=== PATIENT | female | born 1965 | race African-American/Black ===

== ENCOUNTER 2019-10-27 10:04 | Emergency (ER) | payer BC ==
[~2019-10-27] VITALS: Ht 167.6 cm; Wt 94.2 kg
--- NOTE | 2019-10-27 10:30 | PHYS DOC ---
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 Patient denies any fever and is not aware of any COVID contacts but did get tested a couple weeks ago. Patient denies any GI symptoms such as nausea vomiting diarrhea. Symptoms are worse with exertion. Patient has some mild shortness of breath and some back pain as well. Review of Systems: Review of Systems: Constitutional: Denies fever or chills. [] Eyes: Denies change in visual acuity. [] HENT: Complains of nasal congestion and sore throat Respiratory: Complains of cough and mild shortness of breath Cardiovascular: Denies chest pain or edema. [] GI: Denies abdominal pain, nausea, vomiting, bloody stools or diarrhea. [] : Denies dysuria. [] Musculoskeletal: Complains of back pain but no joint pain Integument: Denies rash. [] Neurologic: Denies headache, focal weakness or sensory changes. [] Endocrine: Denies polyuria or polydipsia. [] Lymphatic: Denies swollen glands. [] Psychiatric: Denies depression or anxiety. [] Heart Score: Risk Factors: Risk Factors: DM, Current or recent (<one month) smoker, HTN, HLP, family history of CAD, obesity. Risk Scores: Score 0 - 3: 2.5% MACE over next 6 weeks - Discharge Home Score 4 - 6: 20.3% MACE over next 6 weeks - Admit for Clinical Observation Score 7 - 10: 72.7% MACE over next 6 weeks - Early Invasive Strategies Physical Exam: PE: Constitutional: Well developed, well nourished, no acute distress, non-toxic appearance. [] HENT: Normocephalic, atraumatic, bilateral external ears normal, mild oropharyngeal erythema without tonsillar exudate or abscess nose normal. [] Eyes: PERRLA, EOMI, conjunctiva normal, no discharge. [] Neck: Normal range of motion, no tenderness, supple, no stridor. [] Cardiovascular:Heart rate regular rhythm, peripheral pulses intact, cap refill brisk Lungs & Thorax: Expiratory wheeze no respiratory distress Abdomen: Abdomen soft nontender without guarding or rebound, no pulsatile masses Skin: Warm, dry, no erythema, no rash. [] Back: No tenderness, no CVA tenderness. [] Extremities: No tenderness, no cyanosis, no clubbing, ROM intact, no edema. [] Neurologic: Alert and oriented X 3, normal motor function, normal sensory function, no focal deficits noted. [] Psychologic: Affect normal, judgement normal, mood normal. [] Current Patient Data: Labs: Laboratory Tests Test 10/27/19 10:19 10/27/19 10:34 Group A Streptococcus Rapid Negative Urine Collection Type Void Urine Color Yellow Urine Clarity Clear Urine pH 5.5 Urine Specific Sikes 1.025 Urine Protein Negative mg/dL Urine Glucose (UA) Negative mg/dL Urine Ketones (Stick) Negative mg/dL Urine Blood Negative Urine Nitrite Negative Urine Bilirubin Negative Urine Urobilinogen Dipstick 1.0 mg/dL Urine Leukocyte Esterase Negative Urine RBC 0 /HPF Urine WBC 1-4 /HPF Urine Squamous Epithelial Cells Mod /LPF Urine Bacteria 0 /HPF Urine Mucus Marked /LPF Current Medications Medications (Trade) Dose Ordered Sig/Amado Route PRN Reason Start Time Stop Time Status Last Admin Dose Admin Prednisone (Prednisone) 60 mg 1X ONCE PO 10/27/19 10:45 10/27/19 10:47 DC 10/27/19 11:09 Albuterol Sulfate (Ventolin Neb Soln) 2.5 mg 1X ONCE NEB 10/27/19 10:45 10/27/19 10:47 DC 10/27/19 11:12 Vital Signs: Vital Signs Date Time Temp Pulse Resp B/P (MAP) Pulse Ox O2 Delivery O2 Flow Rate FiO2 10/27/19 11:13 98 Room Air 10/27/19 10:22 98.2 85 20 110/65 (80) 98 Room Air 98.2 EKG: EKG: [] Radiology/Procedures: Radiology/Procedures: [][facility] [address] [place] [address] IMAGING REPORT Signed PATIENT: YOBANI LOPEZ ACCOUNT: [id number] : 1965 LOCATION: ER AGE: 54 SEX: F EXAM STATUS: REG ER ORD. PHYSICIAN: DELMI MARQUEZ MD REASON: fever, cough PROCEDURE: PORTABLE CHEST 1V Single view of the chest. 10/27/2019 10:56 AM Indication: Reason: fever, cough / Spl. Instructions: / History: Comparison: None Findings: There is linear opacification extending from the left hilum and left upper chest. There are linear opacities are noted in the left lateral lung. Appearance favors multifocal discoid atelectasis or scarring. No comparison is available for review. No other definitive focal infiltrate is seen. No pneumothorax or pleural effusion is seen. Heart size is within normal limits. No acute bony changes are identified. IMPRESSION: Linear opacities extending from left hilum and left upper chest, and from left midlung most likely reflecting discoid atelectasis or scarring. Consider radiographic follow-up in to ensure resolution and/or stability. Electronically signed by: Al Gleason MD (10/27/2019 11:28 AM) [id number] DICTATED and SIGNED BY: AL GLEASON MD DATE: 10/27/19 1128 Course & Med Decision Making: Course & Med Decision Making COVID-19 CRITERIA: The patient was evaluated during the global COVID-19 pandemic, and that diagnosis was suspected/considered upon their initial presentation. Their evaluation, treatment and testing was consistent with current guidelines for patients who present with complaints or symptoms that may be related to COVID-19. Pertinent Labs and Imaging studies reviewed. (See chart for details) [] 54-year-old female presents with upper respiratory symptoms. Patient has some wheezing on exam. Patient given nebulizer and steroids. Patient is possible atelectasis versus infiltrate on x-ray. Patient be treated with Zithromax. Strep test is negative cover testing is pending. Patient told to isolate till COVID test comes back. Dragon Disclaimer: Dragon Disclaimer: This electronic medical record was generated, in whole or in part, using a voice recognition dictation system. Departure Departure Impression: Primary Impression: Upper respiratory infection Additional Impressions: Bronchospasm Pneumonia Suspected COVID-19 virus infection Disposition: 01 HOME, SELF-CARE Referrals: SHILA AWAD, RN, PRODUCTION CONTROL EXPEDITER (PCP) 2-3 days Patient Instructions: Upper Respiratory Infection, Adult Additional Instructions: You have been tested for or diagnosed with COVID-19. It is an infection caused by a new type of coronavirus. COVID-19 will cause cold-like or mild flu symptoms in most. It can cause more severe symptoms like problems breathing in some. There is no treatment for COVID-19. The body will clear the infection over time. Self-care will help to ease discomfort. Steps to Take: Self-Care Rest as needed. Healthy habits may help you feel better. Steps include: Choose healthy foods including fruits and vegetables. Drink water throughout the day. Get plenty of sleep each night. If you smoke, try to quit. It may ease breathing. Avoid alcohol. Keep Others Healthy The virus can spread to others. Droplets are released every time you sneeze or cough. The droplets can get into the mouth, nose, or eyes of people near you and lead to infection. To lower the chances of spreading COVID-19 to others: Stay at home until your doctor has said it is safe to leave. If you tested positive this will mean staying isolated until both of the following are true: At least 7 days have passed since the start of illness. You are free of fever for at least 72 hours without the use of medicine. During this time: - Avoid public areas, events, or transportation. Do not return to work or school until your doctor has said it is safe to do so. - Call ahead if you need to go to a medical center. Let them know you may have COVID-19. It will help them guide you where to go. They may also ask you to wear a facemask when you come to the office. - If you call for emergency medical services, let them know you may have COVID- 19. While at home: - Try to avoid close contact with others. Stay about 6 feet away. - If possible, spend most of your time in a separate room from others. - Use a face mask if you will be in close contact with others such as sharing a room or vehicle. - Have someone wipe down common surfaces in the home. Use household printing press operator apprentice every day on areas like doorknobs, counters, or sinks. - Cough or sneeze into a tissue. Throw the tissue away right after use. If a tissue is not available, cough or sneeze into your elbow. - Wash your hands often. Wash them after sneezing or coughing. Use soap and water and wash for at least 20 seconds. Alcohol based hand pigs feet cleaner can be used if soap and water is not available. - Do not prepare food for others. Avoid sharing personal items like forks, spoons, or toothbrushes. - Avoid close contact with pets while you are sick. There is no evidence of the virus passing to pets. This is a safety step until more is known about this virus. Isolation can be frustrating. Social interaction can help. Keep in touch with friends and family through phone and tech options. You can still interact with others in your home, just keep a safe distance of about 6 feet. Follow-up: Your doctors office will check in with you to see if there are any changes in your health. You may be asked to keep track of symptoms to share with them. They will also let you know when you are clear to be in public again. Problems to Look Out For: Contact your doctor if your recovery is not going as you expect. Get emergency care if you have problems such as: - Trouble breathing - Nonstop chest pain or pressure - Changes in awareness, confusion, or problems waking - Lips or face have bluish color - Worsening of symptoms If you think you have an emergency, call for emergency medical services right away. As taken from [facility] EMERGENCY DEPARTMENT GENERAL DISCHARGE INSTRUCTIONS THANK YOU for coming to [facility] Emergency Department (ED) today and trusting us with your care. We trust that you had a positive experience in our Emergency Department. If you wish to speak to the department Management you can contact the department helper at . YOUR FOLLOW UP INSTRUCTIONS ARE FOLLOWS: Do you have a private doctor? If you do not have a private doctor, please ask for a resource list of physicians or clinics that may be able to assist you with follow up care. The Emergency Physician has interpreted your x-rays. The X-ray specialist will also review them. If there is a change in the findings you will be notified in 48 hours when at all possible. A lab test or lab culture may have been done, your results will be reviewed and you will be notified if you need a change in treatment. ADDITIONAL INSTRUCTIONS AND INFORMATION Your care today has been supervised by a physician who is specially trained in emergency care. Many problems require more than one evaluation for a complete diagnosis and treatment. We recommend that you schedule your follow up appointment as recommended to ens ure complete treatment of your illness or injury. If you are unable to obtain follow up care and continue to have a problem, or if your condition worsens we recommend that you return to the ED. We are not able to safely determine your condition over the phone nor are we able to give sound medical advice over the phone. For these safety reasons, if you call for medical advice we will ask you to come to the ED for further evaluation If you have any questions regarding these discharge instructions please call the ED at . SAFETY INFORMATION In the interest of safety, wellness, and injury prevention; we encourage you to wear your seatbelt, if you smoke; quit smoking, and we encourage your family to use protective helmet for bicycling and other sporting events that present an increased risk for head injury. IF YOUR SYMPTOMS WORSEN OR NEW SYMPTOMS DEVELOP, OR YOU HAVE CONCERNS ABOUT YOUR CONDITION; OR IF YOUR CONDITION WORSENS WHILE YOU ARE WAITING FOR YOUR FOLLOW UP APPOINTMENT; EITHER CONTACT YOUR PRIMARY CARE DOCTOR, THE PHYSICIAN WHOSE NAME AND NUMBER YOU WERE GIVEN, OR RETURN TO THE ED IMMEDIATELY. Scripts Albuterol Sulfate (PROAIR HFA INHALER) 8.5 Gm Hfa.aer.ad 2 PUFF IH PRN Q4-6HRS PRN for wheezing, #1 INHALER 0 Refills Prov: DELMI MARQUEZ MD 10/27/19 Prednisone (PREDNISONE) 20 Mg Tablet 3 TAB PO DAILY for 5 Days, #15 TAB Prov: DELMI MARQUEZ MD 10/27/19 Azithromycin (ZITHROMAX) 250 Mg Tablet 1 PKG PO UD, #6 TAB Prov: DELMI MARQUEZ MD 10/27/19 Justicifation of Admission Dx: Justifications for Admission: Justification of Admission Dx: N/A DELMI MARQUEZ MD Oct 27, 2019 10:30
[2019-10-27] MEDS ORDERED: predniSONE 20 MG TABLET PO ONE (10:45)
[2019-10-27] MEDS ORDERED: ALBUTEROL SULFATE 2.5 MG/3 ML NEBU. NEB ONE (10:45)
[2019-10-27 11:19] LABS: BILIRUBIN,URINE NEGATIVE (NEG); CLARITY,URINE CLEAR; COLOR,URINE YELLOW; NITRITE,URINE NEGATIVE (NEG); PH,URINE 5.5 (<5.0-8.0); PROTEIN,URINE NEGATIVE (NEG-TRACE)
--- NOTE | 2019-10-27 11:31 | RAD ---
Single view of the chest. 10/27/2019 10:56 AM Indication: Reason: fever, cough / Spl. Instructions: / History: Comparison: None Findings: There is linear opacification extending from the left hilum and left upper chest. There are linear opacities are noted in the left lateral lung. Appearance favors multifocal discoid atelectasis or scarring. No comparison is available for review. No other definitive focal infiltrate is seen. No pneumothorax or pleural effusion is seen. Heart size is within normal limits. No acute bony changes are identified. IMPRESSION: Linear opacities extending from left hilum and left upper chest, and from left midlung most likely reflecting discoid atelectasis or scarring. Consider radiographic follow-up in to ensure resolution and/or stability. Electronically signed by: Al Gomez MD (10/27/2019 11:28 AM) [id number]
[2019-10-27 11:37] LABS: SQUAMOUS EPITHELIAL CELL,UR MOD /LPF
[2019-10-27 11:38] LABS: BACTERIA,URINE 0 /HPF (0-FEW); RBC,URINE 0 /HPF (0-2)
[2019-10-27] MEDS ORDERED: AZIT250T PO (11:43)
[2019-10-27] MEDS ORDERED: ALBU2.5V8 IH (11:43)
[2019-10-27] MEDS ORDERED: PRED20TA PO (11:43)
[2019-10-27 11:48] VITALS: BP 128/76
--- NOTE | 2019-10-29 11:07 | NUR ---
IP: Informed pt of negative COVID test. Pt verbalized understanding.
== END 2019-10-27 11:53 | disposition home or self-care (01) ==
LOC: ER 10:04
DX: J06.9 Acute upper respiratory infection, unspecified (principal); Z20.828 Contact with and (suspected) exposure to other viral communicable diseases; J98.01 Acute bronchospasm; J18.9 Pneumonia, unspecified organism; R09.81 Nasal congestion; R05 Cough; D86.9 Sarcoidosis, unspecified; F17.200 Nicotine dependence, unspecified, uncomplicated
CPT/HCPCS: 71045; 81001; 87070; 87880; 94640; 99284; J7512; U0003; J7613

== ENCOUNTER 2020-08-20 01:57 | Inpatient (IN) | payer BC ==
[~2020-08-20] VITALS: Ht 165.1 cm; Wt 100.0 kg
[~2020-08-20 01:57] MED LIST: ALBU2.5V8 IH; AZIT250T PO; PRED20TA PO
[2020-08-20] MEDS ORDERED: IPRATRPIUM/ALBUTEROL 0.5/2.5MG 3 ML NEBU. ONE (03:10)
--- NOTE | 2020-08-20 03:10 | ED.ADGEN ---
Past Medical History Past Medical History: No Pertinent History Past Surgical History: Hysterectomy Smoking Status: Current Every Day Smoker Alcohol Use: Rarely General Adult EDM: Chief Complaint: SHORTNESS OF BREATH HPI: HPI: Patient is a 54 year old female coming in for shortness of breath for the past couple days. Patient has had cough productive of clear phlegm, wheezing, and headache. Patient has a history of asthma and is using albuterol inhaler without improvement. Patient says her friend that her borrow nebulizer and it helps for a little bit but the symptoms come back. Review of Systems: Review of Systems: All other systems within normal limits except for as noted in the HPI Current Medications: Current Medications Medications (Trade) Dose Ordered Sig/Amado Start Time Stop Time Status Last Admin Dose Admin Albuterol Sulfate (Ventolin Neb Soln) 10 mg 1X ONCE 08/20/20 03:45 08/20/20 03:46 DC 08/20/20 04:01 10 MG Albuterol/ Ipratropium (Duoneb) 3 ml 1X ONCE 08/20/20 03:45 08/20/20 03:46 DC 08/20/20 04:01 3 ML Methylprednisolone Sodium Succinate (SOLU-Medrol 125MG VIAL) 125 mg 1X ONCE 08/20/20 03:15 08/20/20 03:16 DC 08/20/20 03:52 125 MG Promethazine HCl (Phenergan Syrup) 6.25 mg 1X PRN 08/20/20 05:15 Allergies: Allergies: Allergies Coded Allergies Type Severity Reaction Last Updated Verified morphine Allergy Intermediate DYSPNEA 10/27/19 Yes Physical Exam: PE: Constitutional: Well developed, well nourished, no acute distress, non-toxic appearance. [] HENT: Normocephalic, atraumatic, bilateral external ears normal, nose normal. [] Eyes: PERRLA, conjunctiva normal, no discharge. [] Neck: No rigidity, supple, no stridor. [] Cardiovascular: Regular rate and rhythm, brisk cap refill [] Lungs & Thorax: Non labored symmetric respirations, no tachypnea or respiratory distress. Bilateral expiratory wheezes [] Abdomen: Soft, nondistended. Skin: Warm, dry, no erythema, no rash. [] Back: Unremarkable Extremities: No deformities, range of motion grossly intact, no lower extremity edema [] Neurologic: Alert and oriented X 3, no focal deficits noted. [] Psychologic: Affect normal, judgement normal, mood normal. [] Current Patient Data: Labs: Laboratory Tests Test 08/20/20 03:48 08/20/20 04:45 White Blood Count 6.8 x10^3/uL (4.0-11.0) Red Blood Count 4.75 x10^6/uL (3.50-5.40) Hemoglobin 14.9 g/dL (12.0-15.5) Hematocrit 45.5 % (36.0-47.0) Mean Corpuscular Volume 96 fL (79-100) Mean Corpuscular Hemoglobin 32 pg (25-35) Mean Corpuscular Hemoglobin Concent 33 g/dL (31-37) Red Cell Distribution Width 14.2 % (11.5-14.5) Platelet Count 155 x10^3/uL (140-400) Neutrophils (%) (Auto) 46 % (31-73) Lymphocytes (%) (Auto) 28 % (24-48) Monocytes (%) (Auto) 10 % (0-9) H Eosinophils (%) (Auto) 15 % (0-3) H Basophils (%) (Auto) 1 % (0-3) Neutrophils # (Auto) 3.1 x10^3/uL (1.8-7.7) Lymphocytes # (Auto) 1.9 x10^3/uL (1.0-4.8) Monocytes # (Auto) 0.6 x10^3/uL (0.0-1.1) Eosinophils # (Auto) 1.0 x10^3/uL (0.0-0.7) H Basophils # (Auto) 0.1 x10^3/uL (0.0-0.2) Sodium Level 145 mmol/L (136-145) Potassium Level 3.6 mmol/L (3.5-5.1) Chloride Level 110 mmol/L (98-107) H Carbon Dioxide Level 32 mmol/L (21-32) Anion Gap 3 (6-14) L Blood Urea Nitrogen 16 mg/dL (7-20) Creatinine 1.1 mg/dL (0.6-1.0) H Estimated GFR (Cockcroft-Gault) 62.6 BUN/Creatinine Ratio 15 (6-20) Glucose Level 106 mg/dL (70-99) H Calcium Level 9.1 mg/dL (8.5-10.1) Magnesium Level 2.1 mg/dL (1.8-2.4) Total Bilirubin 0.5 mg/dL (0.2-1.0) Aspartate Amino Transferase (AST) 29 U/L (15-37) Alanine Aminotransferase (ALT) 27 U/L (14-59) Alkaline Phosphatase 87 U/L (46-116) Total Protein 6.5 g/dL (6.4-8.2) Albumin 3.2 g/dL (3.4-5.0) L Albumin/Globulin Ratio 1.0 (1.0-1.7) SARS-CoV-2 Antigen (Rapid) Negative (NEGATIVE) Laboratory Tests 08/20/20 03:48 Laboratory Tests 08/20/20 03:48 Vital Signs: Vital Signs Date Time Temp Pulse Resp B/P (MAP) Pulse Ox O2 Delivery O2 Flow Rate FiO2 08/20/20 03:22 100 08/20/20 03:20 Room Air 08/20/20 03:04 97.0 96 24 153/97 (93) 97.0 EKG: EKG: [] Heart Score: C/O Chest Pain: No Risk Factors: Risk Factors: DM, Current or recent (<one month) smoker, HTN, HLP, family history of CAD, obesity. Risk Scores: Score 0 - 3: 2.5% MACE over next 6 weeks - Discharge Home Score 4 - 6: 20.3% MACE over next 6 weeks - Admit for Clinical Observation Score 7 - 10: 72.7% MACE over next 6 weeks - Early Invasive Strategies Radiology/Procedures: Radiology/Procedures: [facility] [address] [place], [place] [id number] IMAGING REPORT Signed PATIENT: YOBANI LOPEZ ACCOUNT: [id number] : 1965 LOCATION: ER AGE: 54 SEX: F EXAM STATUS: REG ER ORD. PHYSICIAN: EMEKA KHANNA MD REASON: dyspnea PROCEDURE: CHEST PA & LATERAL Chest, PA and Lateral: Technique: PA and lateral views of the chest were obtained. History: Dyspnea. Comparison: 10/27/2019. Findings: The heart and pulmonary vasculature appear within normal limits. Mild bibasilar lung airspace opacities.. The pleural margins are clear. Impression: Mild bibasilar lung airspace opacities likely atelectasis or infiltrates. Electronically signed by: Oli Fam MD (08/20/2020 4:05 AM) [id number] DICTATED and SIGNED BY: OLI FAM MD DATE: 08/20/20 [id number] [] Course & Med Decision Making: Course & Med Decision Making Pertinent Labs and Imaging studies reviewed. (See chart for details) Patient given [id number] DuoNeb's, still wheezing and tachypneic. Given hour- long nebulizer with some improvement patient still wheezing and says she is feeling short of breath. [] Dragon Disclaimer: Dragon Disclaimer: This electronic medical record was generated, in whole or in part, using a voice recognition dictation system. Departure Departure Impression: Primary Impression: Asthma exacerbation Additional Impression: Person under investigation for COVID-19 Disposition: ADMITTED INPATIENT Admitting Physician: MINOO Condition: STABLE Referrals: SHILA AWAD MSN, RN, SENIOR SOUS CHEF (PCP) Problem Qualifiers EMEKA KHANNA MD Aug 20, 2020 03:10
[2020-08-20] MEDS ORDERED: IPRATRPIUM/ALBUTEROL 0.5/2.5MG 3 ML NEBU. NEB ONE ×3 (03:15→03:45)
[2020-08-20] MEDS ORDERED: methylPREDNISolone SOD SUCC PF 125 MG/2 ML VIAL. IV ONE (03:15)
[2020-08-20] MEDS ORDERED: ALBUTEROL SULFATE 2.5 MG/3 ML NEBU. CONT NEB ONE (03:45)
[2020-08-20 04:05] LABS: BASO # 0.1 x10^3/uL (0.0-0.2); BASO % 1 % (0-3); EOS % 15 % (0-3); HEMATOCRIT 45.5 % (36.0-47.0); HEMOGLOBIN 14.9 g/dL (12.0-15.5); LYMPH # 1.9 x10^3/uL (1.0-4.8); LYMPH % 28 % (24-48); MEAN CORPUSCULAR HEMOGLOBIN 32 pg (25-35); MEAN CORPUSCULAR HGB CONC 33 g/dL (31-37); MEAN CORPUSCULAR VOLUME 96 fL (79-100); MONO # 0.6 x10^3/uL (0.0-1.1); MONO % 10 % (0-9); NEUT # 3.1 x10^3/uL (1.8-7.7); NEUT % 46 % (31-73); PLATELET COUNT 155 x10^3/uL (140-400); RED BLOOD COUNT 4.75 x10^6/uL (3.50-5.40); RED CELL DISTRIBUTION WIDTH 14.2 % (11.5-14.5); WHITE BLOOD COUNT 6.8 x10^3/uL (4.0-11.0)
--- NOTE | 2020-08-20 04:07 | RAD ---
Chest, PA and Lateral: Technique: PA and lateral views of the chest were obtained. History: Dyspnea. Comparison: 10/27/2019. Findings: The heart and pulmonary vasculature appear within normal limits. Mild bibasilar lung airspace opacit ies.. The pleural margins are clear. Impression: Mild bibasilar lung airspace opacities likely atelectasis or infiltrates. Electronically signed by: Oli Fam MD (08/20/2020 4:05 AM) [id number]
[2020-08-20 04:33] LABS: CALCIUM 9.1 mg/dL (8.5-10.1); CREATININE 1.1 mg/dL (0.6-1.0); GFR 62.6; POTASSIUM 3.6 mmol/L (3.5-5.1)
[2020-08-20 04:52] LABS: ALBUMIN 3.2 g/dL (3.4-5.0); MAGNESIUM 2.1 mg/dL (1.8-2.4); TOTAL BILIRUBIN 0.5 mg/dL (0.2-1.0); TOTAL PROTEIN 6.5 g/dL (6.4-8.2)
[2020-08-20] MEDS ORDERED: PROMETHAZINE 6.25 MG/5 ML SYRUP. PO PRN (05:15)
[2020-08-20] MEDS: guaiFENesin/CODEINE 100mg/10mg 5 ML LIQUID PO PRN ×3 (05:39→19:48)
[2020-08-20] MEDS ORDERED: fentaNYL PF VIAL 100 MCG/2 ML VIAL IV PRN (05:45)
[2020-08-20] MEDS ORDERED: ONDANSETRON PF 4 MG/2 ML VIAL. IV PRN (05:45)
[2020-08-20] MEDS ORDERED: ACETAMINOPHEN 325 MG TABLET. PO PRN (05:45)
--- NOTE | 2020-08-20 08:16 | PDOC1 ---
History and Physical Date of Admission Date of Admission DATE: 08/20/20 TIME: 08:11 Identification/Chief Complaint Chief Complaint Shortness of breath Source Source: Patient History of Present Illness History of Present Illness Ms Small is a 54 year old female w/ PMHx moderate persistent asthma coming to ED c/o shortness of breath for the past 3 days prior to presentation. It has been progressive with associated cough productive of clear phlegm, wheezing, and headaches. She is using albuterol inhaler without improvement at home and even used a friend's nebulizer, but cannot get relief. She has also been prescribed Breo, but this has been cost prohibitive for her. She does have a smoking history but has not felt like smoking. Afebrile, no recent sick contacts. She has not had a COVID 19 vaccine as of yet, but is now thinking about it. Labs with WBC 6.8 with left shift, Hb 14.9, platelets 155, NA 145, K3.6, magnesium 2.1, BUN 16, CR 1.1, glucose 106, albumin 3.2. Chest radiograph with bibasilar infiltrates concerning for interstitial changes Admitted for further treatment Past Medical History Pulmonary: Asthma, Bronchitis Past Surgical History Past Surgical History: Hysterectomy Family History Family History: Asthma, Hypertension Social History Smoke: <1 pack per day ALCOHOL: rare Drugs: None Current Problem List Problem List Problems Medical Problems: (1) Asthma exacerbation Status: Acute (2) Person under investigation for COVID-19 Status: Acute Current Medications Current Medications Current Medications Albuterol/ Ipratropium (Duoneb) 3 ml 1X ONCE NEB Last administered on 08/20/20at 03:18; Start 08/20/20 at 03:15; Stop 08/20/20 at 03:16; Status DC Albuterol/ Ipratropium (Duoneb) 3 ml 1X ONCE NEB Last administered on 08/20/20at 03:19; Start 08/20/20 at 03:15; Stop 08/20/20 at 03:16; Status DC Methylprednisolone Sodium Succinate (SOLU-Medrol 125MG VIAL) 125 mg 1X ONCE IV Last administered on 08/20/20at 03:52; Start 08/20/20 at 03:15; Stop 08/20/20 at 03:16; Status DC Albuterol/ Ipratropium (Duoneb) 3 ml STK-MED ONCE .ROUTE ; Start 08/20/20 at 03:10; Stop 08/20/20 at 03:11; Status DC Albuterol Sulfate (Ventolin Neb Soln) 10 mg 1X ONCE CONT NEB Last administered on 08/20/20at 04:01; Start 08/20/20 at 03:45; Stop 08/20/20 at 03:46; Status DC Albuterol/ Ipratropium (Duoneb) 3 ml 1X ONCE NEB Last administered on 08/20/20at 04:01; Start 08/20/20 at 03:45; Stop 08/20/20 at 03:46; Status DC Promethazine HCl (Phenergan Syrup) 6.25 mg 1X PRN PO NAUSEA/VOMITING Last administered on 08/20/20at 05:40; Start 08/20/20 at 05:15 Ondansetron HCl (Zofran) 4 mg PRN Q8HRS PRN IV NAUSEA/VOMITING; Start 08/20/20 at 05:45; Stop 08/21/20 at 05:44 Fentanyl Citrate (Fentanyl 2ml Vial) 50 mcg PRN Q1HR PRN IV PAIN; Start 08/20/20 at 05:45; Stop 08/21/20 at 05:44 Acetaminophen (Tylenol) 650 mg PRN Q4HRS PRN PO FEVER > 100.3'F; Start 08/20/20 at 05:45; Stop 08/21/20 at 05:44 Albuterol/ Ipratropium (Duoneb) 3 ml RTQID NEB ; Start 08/20/20 at 08:00; Stop 08/21/20 at 07:59 Guaifenesin/ Codeine Phosphate (Robitussin Ac) 5 ml 1X PRN PO COUGH Last administered on 08/20/20at 05:39; Start 08/20/20 at 05:45 Active Scripts Active Prednisone 20 Mg Tablet 3 Tab PO DAILY 5 Days Zithromax (Azithromycin) 250 Mg Tablet 1 Pkg PO UD Allergies Allergies: Coded Allergies: morphine (Verified Allergy, Intermediate, DYSPNEA, 10/27/19) ROS General: YES: Fatigue, Malaise; No: Chills, Night Sweats, Appetite, Other PSYCHOLOGICAL ROS: No: Anxiety, Behavioral Disorder, Concentration difficultie, Decreased libido, Depression, Disorientation, Hallucinations, Hostility, Irritablity, Memory difficulties, Mood Swings, Obsessive thoughts, Physical abuse, Sexual abuse, Sleep disturbances, Suicidal ideation, Other Eyes: No Blurry vision, No Decreased vision, No Double vision, No Dry eyes, No Excessive tearing, No Eye Pain, No Itchy Eyes, No Loss of vision, No Phot ophobia, No Scotomata, No Uses contacts, No Uses glasses, No Other HEENT: No: Heacaches, Visual Changes, Hearing change, Nasal congestion, Nasal discharge, Oral lesions, Sinus pain, Sore Throat, Epistaxis, Sneezing, Snoring, Tinnitus, Vertigo, Vocal changes, Other ALLERGY AND IMMUNOLOGY: No: Hives, Insect Bite Sensitivity, Itchy/Watery Eyes, Nasal Congestion, Post Nasal Drip, Seasonal Allergies, Other Hematological and Lymphatic: No: Bleeding Problems, Blood Clots, Blood Transfusions, Brusing, Night Sweats, Pallor, Swollen Lymph Nodes, Other ENDOCRINE: No: Breast Changes, Galactorrhea, Hair Pattern Changes, Hot Flashes, Malaise/lethargy, Mood Swings, Palpitations, Polydipsia/polyuria, Skin Changes, Temperature Intolerance, Unexpected Weight Changes, Other Breast: No New/Changing Breast Lumps, No Nipple changes, No Nipple discharge, No Other Respiratory: YES: Cough, Shortness of breath, SOB with excertion; No: Hemoptysis, Orthopnea, Pleuritic Pain, Sputum Changes, Stridor, Tachypnea, Wheezing, Other Cardiovascular: No Chest Pain, No Palpitations, No Orthopnea, No Paroxysmal Noc. Dyspnea, No Edema, No Lt Headedness, No Other Gastrointestinal: No Nausea, No Vomiting, No Abdominal Pain, No Diarrhea, No Constipation, No Melena, No Hematochezia, No Other Genitourinary: No Dysuria, No Frequency, No Incontinence, No Hematuria, No Retention, No Discharge, No Urgency, No Pain, No Flank Pain, No Other, No , No , No , No , No , No , No Musculoskeletal: No Gait Disturbance, No Joint Pain, No Joint Stiffness, No Joint Swelling, No Muscle Pain, No Muscular Weakness, No Pain In:, No Swelling In:, No Other Neurological: No Behavorial Changes, No Bowel/Bladder ControlChng, No Confusion, No Dizziness, No Gait Disturbance, No Headaches, No Impaired Coord/balance, No Memory Loss, No Numbness/Tingling, No Seizures, No Speech Problems, No Tremors, No Visual Changes, No Weakness, No Other Skin: No Dry Skin, No Eczema, No Hair Changes, No Lumps, No Mole Changes, No Mottling, No Nail Changes, No Pruritus, No Rash, No Skin Lesion Changes, No Other, No Acne Physical Exam General: Alert, Oriented X3, Cooperative, moderate distress HEENT: Atraumatic, PERRLA, EOMI, Mucous membr. moist/pink Lungs: Other (Diffuse wheezing, prolonged expiratory phase) Heart: S1S2, RRR, no thrills, no rubs, no gallops, no murmurs Abdomen: Normal bowel sounds, Soft, No tenderness, No hepatosplenomegaly, No masses Rectal Exam: not examined Extremities: No clubbing, No cyanosis, No edema, Normal pulses, No tenderness/swelling Skin: No rashes, No breakdown, No significant lesion Neuro: Normal gait, Normal speech, Strength at 5/5 X4 ext, Normal tone, Sensation intact, Cranial nerves 3-12 NL, Reflexes 2+ Psych/Mental Status: Mental status NL, Mood NL Vitals Vitals Vital Signs Date Time Temp Pulse Resp B/P (MAP) Pulse Ox O2 Delivery O2 Flow Rate FiO2 08/20/20 05:29 75 134/71 (92) 100 Room Air 08/20/20 03:04 97.0 24 97.0 Labs Labs Laboratory Tests Test 08/20/20 03:48 08/20/20 04:45 White Blood Count 6.8 x10^3/uL (4.0-11.0) Red Blood Count 4.75 x10^6/uL (3.50-5.40) Hemoglobin 14.9 g/dL (12.0-15.5) Hematocrit 45.5 % (36.0-47.0) Mean Corpuscular Volume 96 fL (79-100) Mean Corpuscular Hemoglobin 32 pg (25-35) Mean Corpuscular Hemoglobin Concent 33 g/dL (31-37) Red Cell Distribution Width 14.2 % (11.5-14.5) Platelet Count 155 x10^3/uL (140-400) Neutrophils (%) (Auto) 46 % (31-73) Lymphocytes (%) (Auto) 28 % (24-48) Monocytes (%) (Auto) 10 % (0-9) Eosinophils (%) (Auto) 15 % (0-3) Basophils (%) (Auto) 1 % (0-3) Neutrophils # (Auto) 3.1 x10^3/uL (1.8-7.7) Lymphocytes # (Auto) 1.9 x10^3/uL (1.0-4.8) Monocytes # (Auto) 0.6 x10^3/uL (0.0-1.1) Eosinophils # (Auto) 1.0 x10^3/uL (0.0-0.7) Basophils # (Auto) 0.1 x10^3/uL (0.0-0.2) Sodium Level 145 mmol/L (136-145) Potassium Level 3.6 mmol/L (3.5-5.1) Chloride Level 110 mmol/L (98-107) Carbon Dioxide Level 32 mmol/L (21-32) Anion Gap 3 (6-14) Blood Urea Nitrogen 16 mg/dL (7-20) Creatinine 1.1 mg/dL (0.6-1.0) Estimated GFR (Cockcroft-Gault) 62.6 BUN/Creatinine Ratio 15 (6-20) Glucose Level 106 mg/dL (70-99) Calcium Level 9.1 mg/dL (8.5-10.1) Magnesium Level 2.1 mg/dL (1.8-2.4) Total Bilirubin 0.5 mg/dL (0.2-1.0) Aspartate Amino Transf (AST/SGOT) 29 U/L (15-37) Alanine Aminotransferase (ALT/SGPT) 27 U/L (14-59) Alkaline Phosphatase 87 U/L (46-116) Total Protein 6.5 g/dL (6.4-8.2) Albumin 3.2 g/dL (3.4-5.0) Albumin/Globulin Ratio 1.0 (1.0-1.7) SARS-CoV-2 Antigen (Rapid) Negative (NEGATIVE) Laboratory Tests Test 08/20/20 03:48 08/20/20 04:45 White Blood Count 6.8 x10^3/uL (4.0-11.0) Red Blood Count 4.75 x10^6/uL (3.50-5.40) Hemoglobin 14.9 g/dL (12.0-15.5) Hematocrit 45.5 % (36.0-47.0) Mean Corpuscular Volume 96 fL (79-100) Mean Corpuscular Hemoglobin 32 pg (25-35) Mean Corpuscular Hemoglobin Concent 33 g/dL (31-37) Red Cell Distribution Width 14.2 % (11.5-14.5) Platelet Count 155 x10^3/uL (140-400) Neutrophils (%) (Auto) 46 % (31-73) Lymphocytes (%) (Auto) 28 % (24-48) Monocytes (%) (Auto) 10 % (0-9) Eosinophils (%) (Auto) 15 % (0-3) Basophils (%) (Auto) 1 % (0-3) Neutrophils # (Auto) 3.1 x10^3/uL (1.8-7.7) Lymphocytes # (Auto) 1.9 x10^3/uL (1.0-4.8) Monocytes # (Auto) 0.6 x10^3/uL (0.0-1.1) Eosinophils # (Auto) 1.0 x10^3/uL (0.0-0.7) Basophils # (Auto) 0.1 x10^3/uL (0.0-0.2) Sodium Level 145 mmol/L (136-145) Potassium Level 3.6 mmol/L (3.5-5.1) Chloride Level 110 mmol/L (98-107) Carbon Dioxide Level 32 mmol/L (21-32) Anion Gap 3 (6-14) Blood Urea Nitrogen 16 mg/dL (7-20) Creatinine 1.1 mg/dL (0.6-1.0) Estimated GFR (Cockcroft-Gault) 62.6 BUN/Creatinine Ratio 15 (6-20) Glucose Level 106 mg/dL (70-99) Calcium Level 9.1 mg/dL (8.5-10.1) Magnesium Level 2.1 mg/dL (1.8-2.4) Total Bilirubin 0.5 mg/dL (0.2-1.0) Aspartate Amino Transf (AST/SGOT) 29 U/L (15-37) Alanine Aminotransferase (ALT/SGPT) 27 U/L (14-59) Alkaline Phosphatase 87 U/L (46-116) Total Protein 6.5 g/dL (6.4-8.2) Albumin 3.2 g/dL (3.4-5.0) Albumin/Globulin Ratio 1.0 (1.0-1.7) SARS-CoV-2 Antigen (Rapid) Negative (NEGATIVE) Images Images Chest radiograph: The heart and pulmonary vasculature appear within normal limits. Mild bibasilar lung airspace opacities.. The pleural margins are clear. Impression: Mild bibasilar lung airspace opacities likely atelectasis or infiltrates. VTE Prophylaxis Ordered VTE Prophylaxis Devices: No VTE Pharmacological Prophylaxi: Yes Assessment/Plan Assessment/Plan A/P: Acute asthma exacerbation - steroids, add singulair, inhalers until COVID 19 test returns, then aggressive nebulizers Allergic rhinitis - needs antihistamine, nasal spray, add singulair Smoker - counseled on cessation Obesity - counseled on lifestyle modification FEN - General diet PPX - lovenox FULL CODE Dispo - inpatient Justifications for Admission Other Justification LUANNE RAMON MD Aug 20, 2020 08:16
[2020-08-20] MEDS: IPRATRPIUM/ALBUTEROL 0.5/2.5MG 3 ML NEBU. NEB SCH ×4 (08:27→20:00)
[2020-08-20] MEDS ORDERED: ALBUTEROL SULFATE 8GM INHALER. INH PRN (10:30)
[2020-08-20 11:00] VITALS: BP 145/74
[2020-08-20] MEDS ORDERED: OMEG1CAP6 PO (11:07)
[2020-08-20] MEDS ORDERED: guaiFENesin DM 200MG/20MG 10 ML SYRUP PO PRN (13:15)
[2020-08-20] MEDS: methylPREDNISolone SOD SUCC PF 40 MG/ML VIAL. IV SCH ×2 (13:23→23:46)
[2020-08-20] MEDS: CETIRIZINE HCL 10 MG TABLET. PO SCH (13:23)
[2020-08-20] MEDS: FLUTICASONE 50MCG/NASAL SPRAY 16GM BOTTLE. NS SCH (13:24)
[2020-08-20] MEDS: BUDESONIDE 0.5 MG/2 ML NEBU. NEB SCH ×2 (13:26→20:00)
[2020-08-20] MEDS ORDERED: ENOXAPARIN 40 MG/0.4 ML SYRINGE. SQ SCH (14:00)
[2020-08-20 15:00] VITALS: BP 120/60
[2020-08-20 19:00] VITALS: BP 110/71
[2020-08-20] MEDS ORDERED: MONTELUKAST SODIUM 10 MG TABLET. PO SCH (21:00)
[2020-08-20 23:05] VITALS: BP 110/63
[2020-08-21 03:09] VITALS: BP 131/83
[2020-08-21] MEDS: guaiFENesin/CODEINE 100mg/10mg 5 ML LIQUID PO PRN (06:13)
[2020-08-21] MEDS: methylPREDNISolone SOD SUCC PF 40 MG/ML VIAL. IV SCH (06:13)
[2020-08-21 07:00] VITALS: BP 119/70
[2020-08-21] MEDS: BUDESONIDE 0.5 MG/2 ML NEBU. NEB SCH (07:44)
[2020-08-21] MEDS: IPRATRPIUM/ALBUTEROL 0.5/2.5MG 3 ML NEBU. NEB SCH ×2 (07:44→11:18)
[2020-08-21] MEDS: CETIRIZINE HCL 10 MG TABLET. PO SCH (09:33)
[2020-08-21] MEDS: FLUTICASONE 50MCG/NASAL SPRAY 16GM BOTTLE. NS SCH (09:34)
[2020-08-21] MEDS ORDERED: BUDE10.27 IH (10:04)
[2020-08-21] MEDS ORDERED: PRED20TA PO (10:04)
[2020-08-21] MEDS ORDERED: CETI10TA16 PO (10:04)
[2020-08-21] MEDS ORDERED: TRIA10.8 NS (10:04)
[2020-08-21] MEDS ORDERED: MONT10TA49 PO (10:04)
--- NOTE | 2020-08-21 10:08 | PDOC ---
[employer] PROGRESS NOTE Date of Service DOS: DATE: 08/21/20 TIME: 10:07 Chief Complaint Chief Complaint A/P: Acute asthma exacerbation - steroids, add singulair, inhalers until COVID 19 test returns, then aggressive nebulizers Allergic rhinitis - needs antihistamine, nasal spray, add singulair Smoker - counseled on cessation Obesity - counseled on lifestyle modification FEN - General diet PPX - lovenox FULL CODE Dispo - inpatient History of Present Illness History of Present Illness Ms Small is a 54 year old female w/ PMHx moderate persistent asthma coming to ED c/o shortness of breath for the past 3 days prior to presentation. It has been progressive with associated cough productive of clear phlegm, wheezing, and headaches. She is using albuterol inhaler without improvement at home and even used a friend's nebulizer, but cannot get relief. She has also been prescribed Breo, but this has been cost prohibitive for her. She does have a smoking history but has not felt like smoking. Afebrile, no recent sick contacts. She h as not had a COVID 19 vaccine as of yet, but is now thinking about it. Labs with WBC 6.8 with left shift, Hb 14.9, platelets 155, NA 145, K3.6, magnesium 2.1, BUN 16, CR 1.1, glucose 106, albumin 3.2. Chest radiograph with bibasilar infiltrates concerning for interstitial changes Admitted for further treatment. Afebrile. COVID-19 returned negative. After aggressive nebulizers and additional IV steroids her wheezing significantly improved. She would like to go home today and follow-up with [facility] outpatient pulmonology. She was given a prescription for montelukast, Nasacort nasal spray, cetirizine, Symbicort twice daily inhaler and albuterol inhaler as needed. Counseled on avoiding smoke exposure. 5-day prednisone 20 mg as well. Vitals/I&O Vitals/I&O: Vital Signs Date Time Temp Pulse Resp B/P (MAP) Pulse Ox O2 Delivery O2 Flow Rate FiO2 08/21/20 07:44 96 Room Air 08/21/20 07:00 98.1 88 16 119/70 (86) 98.1 I & O 08/20/20 08/20/20 08/21/20 15:00 23:00 07:00 Intake Total 300 ml 300 ml Balance 300 ml 300 ml Physical Exam General: Alert, Oriented X3, Cooperative, moderate distress Abdomen: Normal bowel sounds, Soft, No tenderness, No hepatosplenomegaly, No masses Extremities: No clubbing, No cyanosis, No edema, Normal pulses, No tenderness/swelling Skin: No rashes, No breakdown, No significant lesion Assessment and Plan Assessmemt and Plan Problems Medical Problems: (1) Asthma exacerbation Status: Acute (2) Person under investigation for COVID-19 Status: Acute Comment Review of Relevant I have reviewed the following items anna (where applicable) has been applied. Medications: Current Medications Medications (Trade) Dose Ordered Sig/Amado Route PRN Reason Start Time Stop Time Status Last Admin Dose Admin Albuterol Sulfate (Ventolin Hfa) 2 puff PRN Q4HRS PRN INH SHORTNESS OF BREATH 08/20/20 10:30 08/20/20 11:15 Budesonide (Pulmicort) 0.5 mg RTBID NEB 08/20/20 14:00 08/21/20 07:44 Guaifenesin (Robitussin Dm) 10 ml PRN Q6HRS PRN PO COUGH 08/20/20 13:15 08/21/20 09:34 Montelukast Sodium (Singulair) 10 mg QHS PO 08/20/20 21:00 08/20/20 19:48 Cetirizine HCl (ZyrTEC) 10 mg DAILY PO 08/20/20 14:00 08/21/20 09:33 Methylprednisolone Sodium Succinate (SOLU-Medrol 40MG VIAL) 40 mg Q8HRS IV 08/20/20 14:00 08/21/20 06:13 Enoxaparin Sodium (Lovenox 40mg Syringe) 40 mg Q24H SQ 08/20/20 14:00 08/20/20 13:23 Fluticasone Propionate (Flonase) 2 spray DAILY NS 08/20/20 14:00 08/21/20 09:34 Justifications for Admission Other Justification LUANNE RAMON MD Aug 21, 2020 10:08
--- NOTE | 2020-08-21 10:10 | PDOC3 ---
Discharge Summary Visit Information Date of Admission: Aug 20, 2020 Date of Discharge: Aug 21, 2020 Admitting Diagnosis: Acute asthma exacerbation Final Diagnosis Problems Medical Problems: (1) Asthma exacerbation Status: Acute (2) Person under investigation for COVID-19 Status: Acute Brief Hospital Course Allergies Allergies Coded Allergies Type Severity Reaction Last Updated Verified morphine Allergy Intermediate DYSPNEA 10/27/19 Yes Vital Signs Vital Signs Date Time Temp Pulse Resp B/P (MAP) Pulse Ox O2 Delivery O2 Flow Rate FiO2 08/21/20 07:44 96 Room Air 08/21/20 07:00 98.1 88 16 119/70 (86) 98.1 Lab Results Laboratory Tests Test 08/20/20 03:48 08/20/20 04:45 White Blood Count 6.8 x10^3/uL (4.0-11.0) Red Blood Count 4.75 x10^6/uL (3.50-5.40) Hemoglobin 14.9 g/dL (12.0-15.5) Hematocrit 45.5 % (36.0-47.0) Mean Corpuscular Volume 96 fL (79-100) Mean Corpuscular Hemoglobin 32 pg (25-35) Mean Corpuscular Hemoglobin Concent 33 g/dL (31-37) Red Cell Distribution Width 14.2 % (11.5-14.5) Platelet Count 155 x10^3/uL (140-400) Neutrophils (%) (Auto) 46 % (31-73) Lymphocytes (%) (Auto) 28 % (24-48) Monocytes (%) (Auto) 10 % (0-9) Eosinophils (%) (Auto) 15 % (0-3) Basophils (%) (Auto) 1 % (0-3) Neutrophils # (Auto) 3.1 x10^3/uL (1.8-7.7) Lymphocytes # (Auto) 1.9 x10^3/uL (1.0-4.8) Monocytes # (Auto) 0.6 x10^3/uL (0.0-1.1) Eosinophils # (Auto) 1.0 x10^3/uL (0.0-0.7) Basophils # (Auto) 0.1 x10^3/uL (0.0-0.2) Sodium Level 145 mmol/L (136-145) Potassium Level 3.6 mmol/L (3.5-5.1) Chloride Level 110 mmol/L (98-107) Carbon Dioxide Level 32 mmol/L (21-32) Anion Gap 3 (6-14) Blood Urea Nitrogen 16 mg/dL (7-20) Creatinine 1.1 mg/dL (0.6-1.0) Estimated GFR (Cockcroft-Gault) 62.6 BUN/Creatinine Ratio 15 (6-20) Glucose Level 106 mg/dL (70-99) Calcium Level 9.1 mg/dL (8.5-10.1) Magnesium Level 2.1 mg/dL (1.8-2.4) Total Bilirubin 0.5 mg/dL (0.2-1.0) Aspartate Amino Transf (AST/SGOT) 29 U/L (15-37) Alanine Aminotransferase (ALT/SGPT) 27 U/L (14-59) Alkaline Phosphatase 87 U/L (46-116) Total Protein 6.5 g/dL (6.4-8.2) Albumin 3.2 g/dL (3.4-5.0) Albumin/Globulin Ratio 1.0 (1.0-1.7) SARS-CoV-2 RNA (RACHEL) Negative (Negative) SARS-CoV-2 Antigen (Rapid) Negative (NEGATIVE) Brief Hospital Course Ms Small is a 54 year old female w/ PMHx moderate persistent asthma coming to ED c/o shortness of breath for the past 3 days prior to presentation. It has been progressive with associated cough productive of clear phlegm, wheezing, and headaches. She is using albuterol inhaler without improvement at home and even used a friend's nebulizer, but cannot get relief. She has also been prescribed Breo, but this has been cost prohibitive for her. She does have a smoking history but has not felt like smoking. Afebrile, no recent sick contacts. She has not had a COVID 19 vaccine as of yet, but is now thinking about it. Labs with WBC 6.8 with left shift, Hb 14.9, platelets 155, NA 145, K3.6, magnesium 2.1, BUN 16, CR 1.1, glucose 106, albumin 3.2. Chest radiograph with bibasilar infiltrates concerning for interstitial changes Admitted for further treatment. Afebrile. COVID-19 returned negative. After aggressive nebulizers and additional IV steroids her wheezing significantly improved. She would like to go home today and follow-up with [facility] outpatient pulmonology. She was given a prescription for montelukast, Nasacort nasal spray, cetirizine, Symbicort twice daily inhaler and albuterol inhaler as needed. Counseled on avoiding smoke exposure. 5-day prednisone 20 mg as well. Counseled on consideration of the COVID-19 vaccine, she voices understanding and will look into getting it on discharge. Problem list: Acute asthma exacerbation - steroids, add singulair, inhalers until COVID 19 test returned negative, then aggressive nebulizers Allergic rhinitis - needs antihistamine, nasal spray, add singulair Smoker - counseled on cessation Obesity - counseled on lifestyle modification Greater than 30 minutes spent on d/c home Discharge Information Condition at Discharge: Improved Follow Up: Weeks (1) Disposition/Orders: D/C to Home Scheduled Budesonide/Formoterol Fumarate (Budesonide-Formoterol 80-4.5) 10.2 Gm Hfa.aer.ad, 10.2 GM IH BID for Asthma for 30 Days, #60 Ref 11 Prescribed by: LUANNE RAMON MD on 08/21/20 1004 Cetirizine Hcl (Cetirizine Hcl) 10 Mg Tablet, 10 MG PO DAILY for Allergic rhinitis for 30 Days, #30 Ref 11 Prescribed by: LUANNE RAMON MD on 08/21/20 1004 Montelukast Sodium (Montelukast Sodium Tablet ) 10 Mg Tablet, 10 MG PO QHS for Asthma/Allergies for 30 Days, #30 Ref 2 Prescribed by: LUANNE RAMON MD on 08/21/20 1004 [place]-3 Fatty Acids/Fish Oil (Fish Oil 1,000 Mg Capsule) 1 Each Capsule, 1 EACH PO DAILY for supplement, (Reported) Entered as Reported by: VERA GALVAN RN on 08/20/201106 Last Taken: Unknown Dose on Unknown Date & Time Last Action: New Order on 08/20/201106 by VERA GALVAN RN Prednisone (Prednisone) 20 Mg Tablet, 1 TAB PO DAILY for Asthma for 5 Days, #5 Prescribed by: LUANNE RAMON MD on 08/21/20 1004 Triamcinolone Acetonide (Nasacort) 10.8 Ml [place], 2 SPRAY NS QHS for Allergic rhinitis for 30 Days, #10.8 Ref 11 Prescribed by: LUANNE RAMON MD on 08/21/20 1004 Scheduled PRN Albuterol Sulfate (Proair Hfa Inhaler) 8.5 Gm Hfa.aer.ad, 2 PUFF IH PRN Q4-6HRS PRN for wheezing, #1 Ref 0 Prescribed by: DELMI MARQUEZ MD on 10/27/19 1143 Last Action: Reviewed on 08/20/20 1107 by VERA GALVAN RN Justicifation of Admission Dx: Justifications for Admission: Justification of Admission Dx: N/A LUANNE RAMON MD Aug 21, 2020 10:10
[2020-08-21 11:00] VITALS: BP 131/73
--- NOTE | 2020-08-21 12:16 | NUR ---
Discharge Note: LORENZO LOPEZ [facility] Discharge instructions and discharge home medications reviewed with Patient and a copy given. All questions have been answered and understanding verbalized. The following instructions and handouts were given: Follow up appointment with her PCP Discontinued IV line. Patient discharged to home with self care.
== END 2020-08-21 12:35 | disposition home or self-care (01) | DRG 203 ==
LOC: ER 01:57 → ED HOLD 06:46 → 6 SOUTH 09:32
PROVIDERS: ADMIT Family Medicine; ATTEND Family Medicine
DX: J45.41 Moderate persistent asthma with (acute) exacerbation (principal); E66.9 Obesity, unspecified; F17.210 Nicotine dependence, cigarettes, uncomplicated; Z20.822 Contact with and (suspected) exposure to COVID-19; Z82.49 Family history of ischemic heart disease and other diseases of the circulatory system; Z82.5 Family history of asthma and other chronic lower respiratory diseases; Z90.710 Acquired absence of both cervix and uterus; Z71.6 Tobacco abuse counseling; Z68.36 Body mass index [BMI] 36.0-36.9, adult; Z88.8 Allergy status to other drugs, medicaments and biological substances
CPT/HCPCS: 36415; 71046; 80053; 83735; 85025; 87426; 94640; 94644; 94760; 96374; J1650; J2920; J2930; U0003; U0005; 99285-25; G0378; J7613; J7626